=== PATIENT | female | born 1980 | race Caucasian/White ===

== ENCOUNTER 2016-12-31 09:41 | Emergency (ER) | payer MEDICAID, OTHER ==
[~2016-12-31] VITALS: Ht 165.1 cm; Wt 142.0 kg
[2016-12-31 09:45] VITALS: Ht 165.1 cm; Wt 142.0 kg
[2016-12-31] MEDS ORDERED: BUPIVACAINE 0.25% (MPF) 30 ML INJ INJ ONE (11:30)
[2016-12-31] MEDS ORDERED: IBUP800T25 PO (12:51)
[2016-12-31] MEDS ORDERED: CYCL-319 PO (12:51)
--- NOTE | 2016-12-31 14:13 | ERD ---
ER Documentation Chief Complaint Chief Complaint lower back pain radiating to right leg, hx sciatica HPI Morbidly obese 36-year-old female complaining of bilateral lower back pain 3 days. Patient stated the pain radiates to the back of both legs. 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 Since then, she has pain in the bilateral lumbar region. Pain is worse when she is standing or walking, better when she is sitting. She has history of sciatica on the right. Denies fever or chills. Denies saddle paresthesia. Denies bowel or bladder dysfunction. ROS All systems reviewed and are negative except as per history of present illness. Medications Home Meds Active Scripts Cyclobenzaprine Hcl* (Cyclobenzaprine Hcl*) 10 Mg Tablet, 10 MG PO TID, #15 TAB Prov:MAKENNA WOLFE. LIME SLUDGE MIXER 12/31/16 Ibuprofen* (Motrin*) 800 Mg Tab, 800 MG PO Q6H Y for PAIN AND OR ELEVATED TEMP, #30 TAB Prov:MAKENNA WOFLE. LIME SLUDGE MIXER 12/31/16 Reported Medications [None] No Conflict Check 03/09/12 Allergies Allergies: Coded Allergies: No Known Drug Allergies (Verified Allergy, Mild, 03/09/12) PMhx/Soc History of Surgery: No Anesthesia Reaction: No Hx Neurological Disorder: No Hx Respiratory Disorders: No Hx Cardiac Disorders: No Hx Psychiatric Problems: No Hx Miscellaneous Medical Probl: No Hx Alcohol Use: No Hx Substance Use: No Hx Tobacco Use: No Physical Exam Vitals Vital Signs Date Time Temp Pulse Resp B/P Pulse Ox O2 Delivery O2 Flow Rate FiO2 12/31/16 09:45 98.0 67 18 135/80 99 Physical Exam General: Well-developed, fairly obese, conscious and coherent, in no distress Skin: Warm and dry without rash, good texture and turgor Head: Normocephalic without evidence of trauma Eyes: Sclera and conjunctivae normal; pupils equal, round, and reactive to light; extraocular movements are intact Chest: Normal AP diameter. Good expansion without retractions. Nontender. Lungs are clear to auscultate bilaterally with good tidal volume Heart: Regular rate and rhythm. No murmur, rub, or gallops heard Back: Without spinal or CVA tenderness, marked lordosis. Point tenderness noted in the bilateral gluteal region. Pelvis: Nontender to palpation and stable to compression Extremities: Full range of motion. Good strength bilaterally. No clubbing, cyanosis, or edema. Peripheral pulses are intact. Sensation intact Neuro: Alert and oriented 4, GCS 15. Cranial nerves grossly intact. Motor and sensory exams nonfocal. Moves all extremities. Speech clear. Gait normal Results 24 hrs Current Medications Medications (Trade) Dose Ordered Sig/Jennifer Route PRN Reason Start Time Stop Time Status Last Admin Dose Admin Bupivacaine HCl (Marcaine 0.25% (Mpf) 30 ml) 30 ml ONCE ONCE INJ 12/31/16 11:30 12/31/16 11:31 DC Procedures/MDM Procedure note: Trigger point injection Trigger point injection performed by me. 10 mL of bupivacaine each is injected into bilateral gluteal region. Total number muscle groups injected: 2. Patient reports improvement of pain after the trigger point injection. Morbidly obese 36-year-old female presented ED was bilateral lumbar pain 3 days. Patient does not have any midline spinal tenderness. I doubt spinal fracture, subluxation, or disc herniation. I doubt spinal epidural abscess, cauda equina syndrome. Patient appeared to have piriformis syndrome. Education provided to patient regarding back exercises and weight loss measures. Patient is advised to follow-up with her PCP for a physical therapy referral. Patient appears well, stable for discharge and outpatient management. Medical decision making shared with patient and family. Education provided to patient and family. Patient and family expressed understanding of the plan. Medications on discharge: Ibuprofen, Flexeril. Follow-up: Primary care provider in 2-3 days or return to ED if worse. Disclaimer: Inadvertent spelling and grammatical errors are likely due to EHR/ dictation software use and do not reflect on the overall quality of patient care. Also, please note that the electronic time recorded on this note does not necessarily reflect the actual time of the patient encounter. Departure Diagnosis: Primary Impression: Back pain Patient Instructions: Back Exercises: Pelvic Tilt, Back Exercises: Lower Back Stretch, Back Care Tips, Back Exercises, Lumbar Referrals: [facility] YOU HAVE RECEIVED A MEDICAL SCREENING EXAM AND THE RESULTS INDICATE THAT YOU DO NOT HAVE A CONDITION THAT REQUIRES URGENT TREATMENT IN THE EMERGENCY DEPARTMENT. FURTHER EVALUATION AND TREATMENT OF YOUR CONDITION CAN WAIT UNTIL YOU ARE SEEN IN YOUR DOCTORS OFFICE WITHIN THE NEXT 1-2 DAYS. IT IS YOUR RESPONSIBILITY TO MAKE AN APPOINTMENT FOR FOLOW-UP CARE. IF YOU HAVE A PRIMARY DOCTOR --you should call your primary doctor and schedule an appointment IF YOU DO NOT HAVE A PRIMARY DOCTOR YOU CAN CALL OUR PHYSICIAN REFERRAL HOTLINE AT IF YOU CAN NOT AFFORD TO SEE A PHYSICIAN YOU CAN CHOSE FROM THE FOLLOWING [facility] [address] [facility]. [facility] [address] [facility]. [facility] [address] [facility] [facility] [address] [facility] [address] [facility] [facility] [address] [facility]. [facility] [address] Additional Instructions: Call your primary care doctor TOMORROW for an appointment during the next 2-3 days.See the doctor sooner or return here if your condition worsens before your appointment time. MAKENNA WOLFE NP Dec 31, 2016 14:13
== END 2016-12-31 13:30 | disposition home or self-care (01) ==
LOC: FTE 09:41
DX: M54.5 Low back pain (principal)
CPT/HCPCS: 20552; Z7502; Z7610

== ENCOUNTER 2017-01-12 09:06 | Emergency (ER) | payer OTHER ==
[~2017-01-12] VITALS: Ht 165.1 cm; Wt 141.0 kg
[~2017-01-12 09:06] MED LIST: CYCL-319 PO; IBUP800T25 PO
[2017-01-12 09:07] VITALS: Ht 165.1 cm; Wt 141.0 kg
[2017-01-12] MEDS ORDERED: KETOROLAC 30 MG INJ IM STA (10:22)
--- NOTE | 2017-01-12 11:04 | RADRPT ---
PROCEDURE: XR Lumbar Spine. CLINICAL INDICATION: back pain TECHNIQUE: AP, lateral and cone-down lateral view of the lumbar spine were obtained. COMPARISON: No prior studies are available for comparison. FINDINGS: There is normal vertebral mineralization and alignment. No fracture or subluxation is seen. The disc spaces are normal in appearance. The posterior elements are unremarkable. The soft tissues appear normal. There is a possible 1 cm stone overlying the left kidney. RPTAT: AA IMPRESSION: Unremarkable lumbar spine. Possible stone overlying the left kidney. .Michael Adames MD, MD Date Time Electronically viewed and signed by .Michael Adames MD, on 01/12/2017 11:03 .S/
--- NOTE | 2017-01-12 11:22 | ERD ---
ER Documentation Chief Complaint Chief Complaint Back pain HPI 36-year-old female history of morbid obesity presents with left-sided low back pain started 3 weeks ago after lifting her child. She states that her pain radiates down to her right knee, it is worse with movement and better at rest, it is achy she has not had any fevers, chills, hematuria, nausea or vomiting. ROS All systems reviewed and are negative except as per history of present illness. Medications Home Meds Active Scripts Tramadol HCl (Tramadol HCl) 50 Mg Tablet, 50 MG PO Q4 Y for PAIN, #20 TAB Prov:KULDEEP MOHAN PA-C 01/12/17 Cyclobenzaprine Hcl* (Cyclobenzaprine Hcl*) 10 Mg Tablet, 10 MG PO TID, #15 TAB Prov:MAKENNA WOLFE. GARCIA 12/31/16 Ibuprofen* (Motrin*) 800 Mg Tab, 800 MG PO Q6H Y for PAIN AND OR ELEVATED TEMP, #30 TAB Prov:MAKENNA WOLFE. RECORDS ANALYST 12/31/16 Reported Medications [None] No Conflict Check 03/09/12 Allergies Allergies: Coded Allergies: No Known Drug Allergies (Verified Allergy, Mild, 03/09/12) PMhx/Soc History of Surgery: No Anesthesia Reaction: No Hx Neurological Disorder: No Hx Respiratory Disorders: No Hx Cardiac Disorders: No Hx Psychiatric Problems: No Hx Miscellaneous Medical Probl: No Hx Alcohol Use: No Hx Substance Use: No Hx Tobacco Use: No Physical Exam Vitals Vital Signs Date Time Temp Pulse Resp B/P Pulse Ox O2 Delivery O2 Flow Rate FiO2 01/12/17 09:07 98.6 83 18 133/83 98 Physical Exam General: Well-developed, well-nourished. The patient appears in no acute distress. HEENT: Head is normocephalic, atraumatic. No scleral icterus. Neck: Supple. Nontender. Lungs: Clear to auscultation. Normal air movement. Heart: Regular rate and rhythm. S1 and S2 are normal. No murmurs, gallops, or rubs. Abdomen: Soft, nontender, nondistended. Bowel sounds are normoactive.Gait is intact. Extremities: No clubbing or cyanosis. Normal pulses. Moving extremities x 4. No weakness. Neurologic: Alert and oriented 3. No focal deficits. Skin: Normal turgor. No rash or lesions. Results 24 hrs Current Medications Medications (Trade) Dose Ordered Sig/Jennifer Route PRN Reason Start Time Stop Time Status Last Admin Dose Admin Ketorolac Tromethamine (Toradol) 30 mg ONCE STAT IM 01/12/17 10:22 01/12/17 10:25 DC 01/12/17 10:45 Urine POC results did not transfer to the EMR. Urine dip was negative for glucose, ketones, blood, nitrites and leukocytes. PH is 7.0, trace protein. DIAGNOSTIC IMAGING REPORT Patient: GERALDO HOOD : 1980 Age: 36 Sex: F MR #: [id number] DOS: 01/12/17 1022 Ordering MD: KULDEEP MOHAN PA-C Location: [facility] Room/Bed: PROCEDURE: XR Lumbar Spine. CLINICAL INDICATION: back pain TECHNIQUE: AP, lateral and cone-down lateral view of the lumbar spine were obtained. COMPARISON: No prior studies are available for comparison. FINDINGS: There is normal vertebral mineralization and alignment. No fracture or subluxation is seen. The disc spaces are normal in appearance. The posterior elements are unremarkable. The soft tissues appear normal. There is a possible 1 cm stone overlying the left kidney. RPTAT: AA IMPRESSION: Unremarkable lumbar spine. Possible stone overlying the left kidney. 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 Patient symptoms to stop at the knee, there are no signs of cauda equina, neurologic injury. She is morbidly obese, she is counseled on weight loss and exercise and will likely help her back pain and physical therapy. X-ray lumbar spine shows an incidental finding a 1 cm renal stone on the left side, and this is not consistent with her location of pain, she is asymptomatic. Urine is negative for bladder infection, she was given a copy of the x-ray to take to her primary care doctor for follow-up. Departure Diagnosis: Primary Impression: Back pain Condition: Good KULDEEP MOHAN PA-C Jan 12, 2017 11:22
--- NOTE | 2017-01-12 11:22 | ERD ---
ER Documentation Chief Complaint Chief Complaint Back pain HPI 36-year-old female history of morbid obesity presents with left-sided low back pain started 3 weeks ago after lifting her child. She states that her pain radiates down to her right knee, it is worse with movement and better at rest, it is achy she has not had any fevers, chills, hematuria, nausea or vomiting. ROS All systems reviewed and are negative except as per history of present illness. Medications Home Meds Active Scripts Tramadol HCl (Tramadol HCl) 50 Mg Tablet, 50 MG PO Q4 Y for PAIN, #20 TAB Prov:KULDEEP MOHAN PA-C 01/12/17 Cyclobenzaprine Hcl* (Cyclobenzaprine Hcl*) 10 Mg Tablet, 10 MG PO TID, #15 TAB Prov:MAKENNA WOLFE. GARCIA 12/31/16 Ibuprofen* (Motrin*) 800 Mg Tab, 800 MG PO Q6H Y for PAIN AND OR ELEVATED TEMP, #30 TAB Prov:MAKNENA WOLFE. TIME MOTION ANALYST 12/31/16 Reported Medications [None] No Conflict Check 03/09/12 Allergies Allergies: Coded Allergies: No Known Drug Allergies (Verified Allergy, Mild, 03/09/12) PMhx/Soc History of Surgery: No Anesthesia Reaction: No Hx Neurological Disorder: No Hx Respiratory Disorders: No Hx Cardiac Disorders: No Hx Psychiatric Problems: No Hx Miscellaneous Medical Probl: No Hx Alcohol Use: No Hx Substance Use: No Hx Tobacco Use: No Physical Exam Vitals Vital Signs Date Time Temp Pulse Resp B/P Pulse Ox O2 Delivery O2 Flow Rate FiO2 01/12/17 09:07 98.6 83 18 133/83 98 Physical Exam General: Well-developed, well-nourished. The patient appears in no acute distress. HEENT: Head is normocephalic, atraumatic. No scleral icterus. Neck: Supple. Nontender. Lungs: Clear to auscultation. Normal air movement. Heart: Regular rate and rhythm. S1 and S2 are normal. No murmurs, gallops, or rubs. Abdomen: Soft, nontender, nondistended. Bowel sounds are normoactive.Gait is intact. Extremities: No clubbing or cyanosis. Normal pulses. Moving extremities x 4. No weakness. Neurologic: Alert and oriented 3. No focal deficits. Skin: Normal turgor. No rash or lesions. Results 24 hrs Current Medications Medications (Trade) Dose Ordered Sig/Jennifer Route PRN Reason Start Time Stop Time Status Last Admin Dose Admin Ketorolac Tromethamine (Toradol) 30 mg ONCE STAT IM 01/12/17 10:22 01/12/17 10:25 DC 01/12/17 10:45 Urine POC results did not transfer to the EMR. Urine dip was negative for glucose, ketones, blood, nitrites and leukocytes. PH is 7.0, trace protein. DIAGNOSTIC IMAGING REPORT Patient: GERALDO HOOD : 1980 Age: 36 Sex: F MR #: [id number] DOS: 01/12/17 1022 Ordering MD: KULDEEP MOHAN PA-C Location: [facility]TE Room/Bed: PROCEDURE: XR Lumbar Spine. CLINICAL INDICATION: back pain TECHNIQUE: AP, lateral and cone-down lateral view of the lumbar spine were obtained. COMPARISON: No prior studies are available for comparison. FINDINGS: There is normal vertebral mineralization and alignment. No fracture or subluxation is seen. The disc spaces are normal in appearance. The posterior elements are unremarkable. The soft tissues appear normal. There is a possible 1 cm stone overlying the left kidney. RPTAT: AA IMPRESSION: Unremarkable lumbar spine. Possible stone overlying the left kidney. 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 Patient symptoms to stop at the knee, there are no signs of cauda equina, neurologic injury. She is morbidly obese, she is counseled on weight loss and exercise and will likely help her back pain and physical therapy. X-ray lumbar spine shows an incidental finding a 1 cm renal stone on the left side, and this is not consistent with her location of pain, she is asymptomatic. Urine is negative for bladder infection, she was given a copy of the x-ray to take to her primary care doctor for follow-up. Departure Diagnosis: Primary Impression: Back pain Condition: Good KULDEEP MOHAN PA-C Jan 12, 2017 11:22
[2017-01-12] MEDS ORDERED: TRAM50TA2 PO (12:04)
[2017-01-12 12:10] VITALS: BP 128/83; PULSE 79; RESP 16; TEMP 98.6
== END 2017-01-12 12:11 | disposition home or self-care (01) ==
LOC: FTE 09:06
DX: M54.5 Low back pain (principal); E66.01 Morbid (severe) obesity due to excess calories
CPT/HCPCS: 72100; 81003; 96372; J1885; Z7502

== ENCOUNTER 2017-01-14 09:36 | Emergency (ER) | payer OTHER ==
[~2017-01-14] VITALS: Wt 140.9 kg
[~2017-01-14 09:36] MED LIST changes: +TRAM50TA2 PO
--- NOTE | 2017-01-14 10:55 | ERD ---
ER Documentation Chief Complaint Chief Complaint back pain HPI Patient is a 36-year-old female who presents to the ED for concerns of lower back pain which is radiating down her right leg. Patient was seen here 2 days ago and at that time given a prescription for tramadol. Patient reports taking it once per day with minimal alleviation. Patient denies taking any medication during the day. Requesting epidural injection at this time given that she states it has helped her in the past. Patient notes 3 weeks ago she sat down quickly which caused her to have pain. Pain intermittently resolved however a week ago she was walking with her child when her child fell and she was pulled downwards by the child. Patient denies any fevers, chills, nausea, vomiting, saddle anesthesia, urinary incontinence, stool incontinence, dysuria or flank pain. She reports difficulty ambulating secondary to back pain. Patient denies any new falls or trauma since last visit. ROS All systems reviewed and are negative except as per history of present illness. Medications Home Meds Active Scripts Tramadol HCl (Tramadol HCl) 50 Mg Tablet, 50 MG PO Q4 Y for PAIN, #20 TAB Prov:KULDEEP MOHAN PA-C 01/12/17 Cyclobenzaprine Hcl* (Cyclobenzaprine Hcl*) 10 Mg Tablet, 10 MG PO TID, #15 TAB Prov:MAKENNA WOLFE NP 12/31/16 Ibuprofen* (Motrin*) 800 Mg Tab, 800 MG PO Q6H Y for PAIN AND OR ELEVATED TEMP, #30 TAB Prov:MAKENNA WOLFE. SENIOR HYDROGEOLOGIST 12/31/16 Reported Medications [None] No Conflict Check 03/09/12 Allergies Allergies: Coded Allergies: No Known Drug Allergies (Verified Allergy, Mild, 03/09/12) PMhx/Soc History of Surgery: No Anesthesia Reaction: No Hx Neurological Disorder: No Hx Respiratory Disorders: No Hx Cardiac Disorders: No Hx Psychiatric Problems: No Hx Miscellaneous Medical Probl: No Hx Alcohol Use: No Hx Substance Use: No Hx Tobacco Use: No Smoking Status: Never smoker Physical Exam Vitals Vital Signs Date Time Temp Pulse Resp B/P Pulse Ox O2 Delivery O2 Flow Rate FiO2 01/14/17 09:40 98.1 72 20 129/86 99 Physical Exam GENERAL: Well-developed, well-nourished female. Appears in no acute distress. Obese. HEAD: Normocephalic, atraumatic. EYES: Pupils are equally reactive bilaterally. EOMs grossly intact. No conjunctival erythema. ENT: Moist mucous membranes. No uvula deviation. No kissing tonsils. NECK: Supple. No meningismus. Normal range of motion of the neck. LUNG: Clear to auscultation bilaterally. No rhonchi, wheezing, rales or coarse breath sounds. HEART: Regular rate and rhythm. No murmurs, rubs or gallops. BACK: No midline tenderness. Tenderness to palpation in the right lumbar paraspinal muscles. Unable to lie down flat secondary to pain. EXTREMITIES: Equal pulses bilaterally. No peripheral clubbing, cyanosis or edema. No unilateral leg swelling. NEUROLOGIC: Alert and oriented. Moving all four extremities without any difficulty. Normal speech. SKIN: Normal color. Warm and dry. No rashes or lesions. Procedures/MDM MEDICAL DECISION MAKING: This is a 36-year-old female who presents with lower back pain radiating down her right leg 3 weeks. Patient was seen here on 01-12-17 and at that time a lumbar x-ray was obtained which was negative. Patient presents today requesting for epidural injection given that she states it has helped her in the past. Vital signs were reviewed. Patient was afebrile. Patient denied any saddle anesthesia, urinary incontinence, bowel incontinence. Given that patient denies any new falls or trauma, there is no indication for repeat imaging at this time. Advised the patient that I am unable to provide her with an epidural injection as this is not done in the ED. Patient was referred to a painter and body mechanic apprentice. Referral information provided. Patient also advised to contact her insurance company for referral information/move up her appointment from February. Patient was offered pain relief here in the ED including a Toradol injection and Tyler however declined both these medications. I also did offer the patient additional medication for pain relief at home however she states she will just continue to take that tramadol she was given at the last visit and increase her frequency. Given these findings, the patient's presentation is most consistent with lumbar strain with sciatica.. I have a much lower clinical concern for cauda equine syndrome, spinal fractures, epidural abscess, spinal metastases, osteomyelitis, aortic dissection, r, muscle spasm, pyelonephritis or nephrolithiasis. PRESCRIPTIONS: None Advised to continue Ibuprofen and Tramadol DISCHARGE: At this time, patient is stable for discharge and outpatient management. RICE therapy and ROM exercises were advised to avoid stiffness. I have instructed the patient to follow-up with his/her primary care physician in 1-2 days. I have discussed with the patient the possibility of needing to see an senior capital markets specialist for further workup and imaging if the pain persists. I have instructed the patient to promptly return to the ER for any new or worsening symptoms including increased pain, swelling, warmth, urinary incontinence, stool incontinence, weakness or numbness. The patient and/or family expressed understanding of and agreement with this plan. All questions were answered. Home care instructions were provided. Disclaimer: Inadvertent spelling and grammatical errors are likely due to EHR/ dictation software use and do not reflect on the overall quality of patient care. Also, please note that the electronic time recorded on this note does not necessarily reflect the actual time of the patient encounter. Departure Diagnosis: Primary Impression: Lower back pain Chronicity: chronic Back pain laterality: right Sciatica presence: with sciatica Sciatica laterality: sciatica of right side Qualified Code: M54.41 - Chronic right-sided low back pain with right-sided sciatica Condition: Stable Patient Instructions: Back Exercises: Back Press, Back Pain W/ Sciatica [facility] YOU HAVE RECEIVED A MEDICAL SCREENING EXAM AND THE RESULTS INDICATE THAT YOU DO NOT HAVE A CONDITION THAT REQUIRES URGENT TREATMENT IN THE EMERGENCY DEPARTMENT. FURTHER EVALUATION AND TREATMENT OF YOUR CONDITION CAN WAIT UNTIL YOU ARE SEEN IN YOUR DOCTORS OFFICE WITHIN THE NEXT 1-2 DAYS. IT IS YOUR RESPONSIBILITY TO MAKE AN APPOINTMENT FOR FOLOW-UP CARE. IF YOU HAVE A PRIMARY DOCTOR --you should call your primary doctor and schedule an appointment IF YOU DO NOT HAVE A PRIMARY DOCTOR YOU CAN CALL OUR PHYSICIAN REFERRAL HOTLINE AT IF YOU CAN NOT AFFORD TO SEE A PHYSICIAN YOU CAN CHOSE FROM THE FOLLOWING [facility] [address] [place] [facility] [address] [facility] [address] [facility] [address] [facility] [address] [facility]. [facility] [address] [facility]. [facility] YOU HAVE RECEIVED A MEDICAL SCREENING EXAM AND THE RESULTS INDICATE THAT YOU DO NOT HAVE A CONDITION THAT REQUIRES URGENT TREATMENT IN THE EMERGENCY DEPARTMENT. FURTHER EVALUATION AND TREATMENT OF YOUR CONDITION CAN WAIT UNTIL YOU ARE SEEN IN YOUR DOCTORS OFFICE WITHIN THE NEXT 1-2 DAYS. IT IS YOUR RESPONSIBILITY TO MAKE AN APPOINTMENT FOR FOLOW-UP CARE. IF YOU HAVE A PRIMARY DOCTOR --you should call your primary doctor and schedule and appointment IF YOU DO NOT HAVE A PRIMARY DOCTOR YOU CAN CALL OUR PHYSICIAN REFERRAL HOTLINE AT . IF YOU CAN NOT AFFORD TO SEE A PHYSICIAN YOU CAN CHOSE FROM THE FOLLOWING [facility] INSTITUTIONS: [facility] [address] [place] [address] [facility] [address] [place] [address] [facility] [address] [place] [address] [facility] Hours: Mon-Fri 9:00 AM - 5:00 PM Additional Instructions: Call your primary care doctor TOMORROW for an appointment during the next 1-2 days.See the doctor sooner or return here if your condition worsens before your appointment time. Follow up with your primary care physician for referral to a painter and body mechanic apprentice for epidural injections. See referral info for pain management. MIKA THIBODEAUX PA-C Jan 14, 2017 10:55
== END 2017-01-14 11:32 | disposition home or self-care (01) ==
LOC: FTE 09:36
DX: M54.41 Lumbago with sciatica, right side (principal)
CPT/HCPCS: 99282